=== PATIENT | female | born 1990 | race Caucasian/White ===

== ENCOUNTER 2021-04-19 09:30 | Inpatient (IN) | payer BC ==
[2021-04-19] VITALS (29 sets, daily range): BP systolic 95–1117; BP diastolic 57–81; PULSE 73–122; TEMP 98.1–98.6
[~2021-04-19] VITALS: Ht 162.6 cm; Wt 113.6 kg
[2021-04-19 11:12] LABS: BASO % 0.2 % (0.0-2.0); EOS % 0.3 % (0-4.0); GRAN # 7.7 (1.4-6.5); GRAN % 79.5 % (42.2-75.2); HEMOGLOBIN 11.8 g/dl (12.5-16.0); LYMPH # 1.2 (1.2-3.4); LYMPH % 12.1 % (20.0-51.0); MEAN CELL VOLUME 92 fl (80.0-100.0); MEAN CORPUSCULAR HEMOGLOBIN 32 pg (27.0-31.0); MEAN CORPUSCULAR HGB CONC 35 g/dl (33.0-37.0); MEAN PLATELET VOLUME 10.1 fl (7.4-10.4); MONO # 0.7 (0.1-0.6); MONO % 7.2 % (1.7-9.3); PLATELET COUNT 172 K/mm3 (130-400); RED BLOOD COUNT 3.71 M/mm3 (4.10-5.30); REDCELL DISTRIBUTION WIDTH-CV 12.4 % (11.5-14.5)
--- NOTE | 2021-04-19 11:18 | NUR ---
0940 PATIENT HERE FOR COMPLAINTS OF GETTING UP TO BATHROOM AT 4 AM THIS AM AND LEAKING FLUID. ASSESSMENT COMPLETED. EFM ON FHT 125 BABY VERY ACTIVE AND GOOD ACCELERATIONS NOTED. DENIES NEEDS. DR JONES CALLED WITH ALL ABOVE INFORMATION. ORDERS GIVEN FOR ADMIT AND INDUCTION.
--- NOTE | 2021-04-19 11:21 | NUR ---
1000 IV STARTED IN LEFT WRIST. STANISLAW WILEY STARTED.
--- NOTE | 2021-04-19 13:45 | NUR ---
1330 PATIENT FEELING MORE PRESSURE LOW. SVE 7-8/100/[address] JONES CALLEDAND UPDATED. ORDERS TO CALL SOON HE IS NEEDED FOR DELIVERY
--- NOTE | 2021-04-19 15:37 | NUR ---
[address] JONES HERE FOR DELIVERY. PATIENT PUSHING WITH EACH CONTRACTION. 1446 BABY BOY BORN VIA . CORD CLAMPED AND TO MOMS CHEST. STRONG CRY NOTED. 1450 PLACENTA DELIVERED AND PITOCIN STARTED AT 333 PER PROTOCOL. FUNDUS BOGGY BUT MASSAGED TIL FIRM. [address] JONES AT THIS TIME. PATIENT TOLERATES WELL. LIDOCINE USED FOR NUMBING.
[2021-04-20 00:45] VITALS: BP 107/61; PULSE 94
[2021-04-20 04:20] VITALS: BP 114/65; PULSE 91; TEMP 97.9
[2021-04-20] MEDS ORDERED: IBU800 M1 PO (09:24)
[2021-04-20 09:30] VITALS: BP 128/78; PULSE 100; TEMP 98.1
[2021-04-20 10:30] LABS: BASO % 0.2 % (0.0-2.0); EOS % 0.2 % (0-4.0); GRAN # 13.3 (1.4-6.5); GRAN % 77.8 % (42.2-75.2); HEMOGLOBIN 9.4 g/dl (12.5-16.0); LYMPH # 2.3 (1.2-3.4); LYMPH % 13.3 % (20.0-51.0); MEAN CELL VOLUME 95 fl (80.0-100.0); MEAN CORPUSCULAR HEMOGLOBIN 32 pg (27.0-31.0); MEAN CORPUSCULAR HGB CONC 34 g/dl (33.0-37.0); MEAN PLATELET VOLUME 10.1 fl (7.4-10.4); MONO # 1.3 (0.1-0.6); MONO % 7.4 % (1.7-9.3); PLATELET COUNT 226 K/mm3 (130-400); RED BLOOD COUNT 2.94 M/mm3 (4.10-5.30); REDCELL DISTRIBUTION WIDTH-CV 12.8 % (11.5-14.5)
[2021-04-20 20:17] VITALS: BP 133/77; PULSE 89; TEMP 98.5
[2021-04-21 08:10] VITALS: BP 128/78; PULSE 108; TEMP 98.9
--- NOTE | 2021-04-21 10:33 | NUR ---
Initial visit; Patient thanked Tube Puller for offering congratulations for the of her son. Tube Puller thanked patient for choosing [facility].
--- NOTE | 2021-04-21 11:15 | NUR ---
DISCHARGE TEACHING COMPLETED. EDUCATED ON FOLLOW UP APPOINTMENT AND PRESCRIPTIONS SENT TO [facility]. QUESTIONS INVITED AND ANSWERED.
== END 2021-04-21 11:35 | disposition home or self-care (01) | DRG 807 ==
LOC: LDRO 09:30 → LDR 10:05 → OB 16:19
PROVIDERS: Obstetrics & Gynecology; ADMIT Obstetrics & Gynecology
PROC: 10E0XZZ Delivery of Products of Conception, External Approach (ICD-10-PCS; principal; 2021-04-19)
PROC: 0KQM0ZZ Repair Perineum Muscle, Open Approach (ICD-10-PCS; 2021-04-19)
DX: O70.1 Second degree perineal laceration during delivery (principal); Z37.0 Single live birth; Z3A.37 37 weeks gestation of pregnancy; O99.824 Streptococcus B carrier state complicating childbirth; O75.89 Other specified complications of labor and delivery; R21 Rash and other nonspecific skin eruption
CPT/HCPCS: J2210; J2540; J2590; J7120

== ENCOUNTER 2022-02-25 16:03 | Inpatient (IN) | payer OTHER ==
[~2022-02-25] VITALS: Ht 165.1 cm; Wt 118.1 kg
[2022-02-25] VITALS (9 sets, daily range): BP systolic 96–119; BP diastolic 55–78; PULSE 63–141; TEMP 97.7–98.3
--- NOTE | 2022-02-25 16:02 | NUR ---
Call from ER billing control clerk that patient was having a baby in ER. This RN to ER lobby and ER nurse holding below mother with umbilical cord still intact and mother standing. This RN puts new blanket around - dried and stimulated/crying and good color noted. and Fifi, office technologist, Amadou Baptiste RN, Maddy RN, Shakir Patterson RN assist patient onto stretcher and this RN continues to hold and follow with infant. to patient abdomen and Maddy RN assumes care of . Cord clamped x1 at this time. Dr. Andre called and no answer. 1606: Patient and to OB unit on stretcher at this time. Dr. Andre called and no answer. Patient to LR3 and cord clamped x1 and cut by FOB. to warmer and patient assisted to labor bed. Yuliana Schilling RN calls Dr. Berger and states he is on the way from [facility]. Pericare done and placenta undelivered. VSS. IV started in right hand, blood obtained and to lab, flushed. 1630: Dr. Berger at bedside and updated. Free flow of bright red blood noted. 1632: Spontaneous delivery of intact placenta in the bed. Dr. Berger [facility] catherizes patient at this time and perineum intanct. Fundal massage done/firm/bleeding WNL. Pericare done. Bedding cleaned and patient repositioned. Ice pack to perineum and plan of care discussed.
[~2022-02-25 16:03] MED LIST: IBU800 M1 PO
[2022-02-25 16:36] LABS: BASO % 0.4 % (0.0-2.0); EOS # 0.1 K/mm3 (0.0-0.7); EOS % 0.6 % (0.0-4.0); GRAN # 6.9 K/mm3 (1.4-6.5); GRAN % 67.1 % (42.2-75.2); HEMATOCRIT 37.9 % (37.0-47.0); HEMOGLOBIN 12.5 g/dl (12.5-16.0); LYMPH # 2.5 K/mm3 (1.2-3.4); LYMPH % 24.3 % (20.0-51.0); MEAN CELL VOLUME 90 fl (80.0-100.0); MEAN CORPUSCULAR HEMOGLOBIN 30 pg (27-31); MEAN CORPUSCULAR HGB CONC 33 g/dl (33.0-37.0); MEAN PLATELET VOLUME 9.7 fl (7.4-10.4); MONO # 0.7 K/mm3 (0.1-0.6); MONO % 7.2 % (1.7-9.3); PLATELET COUNT 374 K/mm3 (130-400); RED BLOOD COUNT 4.21 M/mm3 (4.10-5.30); REDCELL DISTRIBUTION WIDTH-CV 12.8 % (11.5-14.5)
[2022-02-25] MEDS ORDERED: OSCAL 500 TAB500 MG (16:42)
[2022-02-25] MEDS ORDERED: PRENATAL (16:42)
--- NOTE | 2022-02-25 19:45 | NUR ---
Pt able to ambulate to bathroom independently. Able to void 500 mL without difficulty. Pericare explained and provided. Clean gown on. Mesh panties and peripad applied. Pt to nursery to see baby. Belongings moved to room 218.
[2022-02-26 04:45] VITALS: BP 115/67; PULSE 61; TEMP 97.9
[2022-02-26] MEDS ORDERED: IBU600 MG PO (08:11)
[2022-02-26 08:26] VITALS: BP 120/78; PULSE 90; TEMP 98.1
--- NOTE | 2022-02-26 09:21 | NUR ---
Initial visit; Parents thanked Egg Pasteurizer for offering congratulations and God's blessings for the of their son. Egg Pasteurizer thanked family for choosing [facility].
--- NOTE | 2022-02-26 09:42 | NUR ---
Mandolin Repair Person was consulted for patient who delivered her baby in the ED waiting room. BRENDAN met with patient and her , Reginald (ph#[phone]) who is at bedside. Patient states she and baby are doing okay after an eventful devliery. Patient lives in [place] with her and their 10 month old son. Patient advised her 10 month old has an established daycare, but that her mother Charity is currently watching him. Patient reports a good support system and has all needed supplies for baby. Patient is not interested in applying for WIC at this time and states she intends to return to work. Patient advised she is not currently employed but plans to return to work soon. Patient advised she did struggle with anxiety during her however it was due to a stressful work situation. Patient utilizes telehealth therapy through a work provider as well as medication however she reported that she is now weaned off the medication and no longer sees a therapy provider. Patient feels she is doing well and is not interested in getting set up with any mental health services at this time. BRENDAN provided [facility] Resource Guide. BRENDAN collaborated with RN who had no concerns at this time.
[2022-02-26 16:35] VITALS: BP 132/69; PULSE 80; TEMP 97.8
[2022-02-26 20:47] VITALS: BP 123/59; PULSE 84; TEMP 97.9
[2022-02-27 07:45] VITALS: BP 144/82; PULSE 72; TEMP 98.1
== END 2022-02-27 15:00 | disposition home or self-care (01) | DRG 807 ==
LOC: LDRO 16:03 → LDR 16:07 → OB 16:07 → LDR 16:23 → OB 21:00
PROVIDERS: ADMIT Obstetrics & Gynecology
PROC: 10E0XZZ Delivery of Products of Conception, External Approach (ICD-10-PCS; principal; 2022-02-25)
DX: O62.3 Precipitate labor (principal); Z37.0 Single live birth; O99.344 Other mental disorders complicating childbirth; F41.9 Anxiety disorder, unspecified; O99.284 Endocrine, nutritional and metabolic diseases complicating childbirth; E28.2 Polycystic ovarian syndrome; O99.214 Obesity complicating childbirth; E66.9 Obesity, unspecified; Z23 Encounter for immunization; Z3A.37 37 weeks gestation of pregnancy
CPT/HCPCS: J2590

== ENCOUNTER 2023-08-19 04:46 | Inpatient (IN) | payer OTHER ==
[~2023-08-19] VITALS: Ht 162.6 cm; Wt 123.6 kg
[2023-08-19] VITALS (8 sets, daily range): BP systolic 122–140; BP diastolic 32–87; PULSE 72–107; TEMP 97.9–98.2
[~2023-08-19 04:46] MED LIST changes: +IBU600 MG PO; +NATURAL IRON65 MG; +OSCAL 500 TAB500 MG; +PRENATAL
[2023-08-19 05:37] LABS: BASO % 0.3 % (0.0-2.0); EOS # 0.1 K/mm3 (0.0-0.7); EOS % 0.7 % (0.0-4.0); GRAN # 4.2 K/mm3 (1.4-6.5); GRAN % 57.5 % (42.2-75.2); HEMOGLOBIN 12.1 g/dl (12.5-16.0); LYMPH # 2.3 K/mm3 (1.2-3.4); LYMPH % 32.3 % (20.0-51.0); MEAN CELL VOLUME 89 fl (80.0-100.0); MEAN CORPUSCULAR HEMOGLOBIN 30 pg (27-31); MEAN CORPUSCULAR HGB CONC 34 g/dl (33.0-37.0); MEAN PLATELET VOLUME 10.6 fl (7.4-10.4); MONO # 0.6 K/mm3 (0.1-0.6); MONO % 8.9 % (1.7-9.3); PLATELET COUNT 186 K/mm3 (130-400); RED BLOOD COUNT 4.01 M/mm3 (4.10-5.30); REDCELL DISTRIBUTION WIDTH-CV 14.7 % (11.5-14.5)
[2023-08-19 05:38] LABS: HEMATOCRIT 35.5 % (37.0-47.0)
--- NOTE | 2023-08-19 05:45 | NUR ---
0530: Pt reports feeling more pelvic pressure and as if she wants to push with some ctx. Pt SVE /-1 at this time. 0535: Pt SROM at this time clear fluid, bloody show noted. Pt feeling more intense pressure and feeling of needing to push. Pt begins pushing involuntarily and I observed the fetus . Dr Berger notified and pt prepared for delivery. 0541: Live female delivered via , placed on mother's abdomen, dried and stimulated. Cord clamped by Dr Berger and cut by 's father. placed skin to skin with mother and recovery started.
[2023-08-20 00:30] VITALS: BP 142/81; PULSE 71; TEMP 97.9
[2023-08-20 05:30] VITALS: BP 133/77; PULSE 58; TEMP 97.8
[2023-08-20 06:06] LABS: HEMOGLOBIN 11.1 g/dl (12.5-16.0)
[2023-08-20 06:10] LABS: HEMATOCRIT 32.9 % (37.0-47.0)
[2023-08-20 08:10] VITALS: BP 130/70; PULSE 89; TEMP 97.9
--- NOTE | 2023-08-20 09:24 | NUR ---
Initial visit; Patient thanked Health And Safety Advisor for offering congratulations and God's blessings for the of her daughter. Health And Safety Advisor thanked mom for choosing [facility].
[2023-08-20] MEDS ORDERED: IBU600 MG PO (10:12)
== END 2023-08-20 11:35 | disposition home or self-care (01) | DRG 807 ==
LOC: LDRO 04:46 → LDR 05:21 → OB 06:57
PROVIDERS: ADMIT Obstetrics & Gynecology
PROC: 10E0XZZ Delivery of Products of Conception, External Approach (ICD-10-PCS; principal; 2023-08-19)
DX: O99.214 Obesity complicating childbirth (principal); Z37.0 Single live birth; Z3A.39 39 weeks gestation of pregnancy; O99.344 Other mental disorders complicating childbirth; F41.9 Anxiety disorder, unspecified; O99.284 Endocrine, nutritional and metabolic diseases complicating childbirth; E28.2 Polycystic ovarian syndrome; O99.02 Anemia complicating childbirth; D64.9 Anemia, unspecified; Z23 Encounter for immunization